=== PATIENT | female | born 2000 | race Hispanic/Latino ===

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

== ENCOUNTER 2022-08-23 17:52 | Emergency (ER) | payer OTHER ==
[~2022-08-23] VITALS: Ht 154.9 cm; Wt 79.8 kg
[~2022-08-23 17:52] MED LIST: ESGIC 50-325-41 EACH PO; FAMOTIDINE20 MG PO; ONDANSETRON ODT4 MG PO
[2022-08-23] MEDS ORDERED: ONDANSETRON HCL INJ 2MG/ML 2ML 2 MG/ML VIAL IV STA (18:18)
[2022-08-23] MEDS ORDERED: ONDANSETRON HCL INJ 2MG/ML 2ML 2 MG/ML VIAL ONE (18:38)
[2022-08-23] MEDS ORDERED: NEXIUM40 MG PO (20:03)
[2022-08-23] MEDS ORDERED: ONDANSETRON ODT4 MG PO (20:03)
[2022-08-23] MEDS ORDERED: KETOROLAC TROME10 MG PO (20:03)
== END 2022-08-23 20:30 | disposition home or self-care (01) ==
LOC: FSED 18:49
DX: N13.30 Unspecified hydronephrosis (principal); R10.11 Right upper quadrant pain; F32.A Depression, unspecified
CPT/HCPCS: 74176; 76705; 80053; 80076; 81003; 81025; 85025; 99284; J2405